=== PATIENT | female | born 1965 | race Two or more races ===

== ENCOUNTER → 2018-07-23 | Outpatient (CLI) | payer OTHER | END | disposition home or self-care (01) | LOC: MAMO-SONO 12:45 | DX: Z12.31 Encounter for screening mammogram for malignant neoplasm of breast (principal) ==

== ENCOUNTER 2020-05-11 09:57 | Outpatient (CLI) | payer OTHER | END 2020-05-11 10:02 | disposition home or self-care (01) | LOC: MAMO-SONO 09:57 | PROVIDERS: ATTEND Obstetrics & Gynecology | DX: Z12.31 Encounter for screening mammogram for malignant neoplasm of breast (principal); N64.4 Mastodynia; N85.01 Benign endometrial hyperplasia ==

== ENCOUNTER 2022-02-13 09:10 | Outpatient (CLI) | payer OTHER | END 2022-02-13 09:18 | disposition home or self-care (01) | LOC: MAMO-SONO 09:10 | PROVIDERS: ATTEND Obstetrics & Gynecology | DX: D25.1 Intramural leiomyoma of uterus (principal); N64.4 Mastodynia ==

== ENCOUNTER 2023-12-11 15:29 | Outpatient (CLI) | payer OTHER | END 2023-12-11 16:47 | disposition home or self-care (01) | LOC: MAMO-SONO 15:29 | PROVIDERS: ATTEND Obstetrics & Gynecology | DX: N60.22 Fibroadenosis of left breast (principal); N60.21 Fibroadenosis of right breast; Z12.31 Encounter for screening mammogram for malignant neoplasm of breast; N85.01 Benign endometrial hyperplasia ==

== ENCOUNTER 2025-05-10 09:54 | Outpatient (CLI) | payer OTHER | END 2025-05-10 09:58 | disposition home or self-care (01) | LOC: MAMO-SONO 09:54 | PROVIDERS: ATTEND Obstetrics & Gynecology | DX: N60.22 Fibroadenosis of left breast (principal); N60.21 Fibroadenosis of right breast; Z12.31 Encounter for screening mammogram for malignant neoplasm of breast; D25.1 Intramural leiomyoma of uterus ==